=== PATIENT | female | born 1940 | race Hispanic/Latino ===

== ENCOUNTER → 2019-08-09 | Outpatient (CLI) | payer OTHER ==
[~2019-08-09] MED LIST: D3/R1CAP PO; HYDR12.530 PO; LOSA100T58 PO; METO50TA18 PO; OMEP20TA2 PO; fish PO
--- NOTE | 2019-08-09 23:54 | NUR ---
CURRENT MEDICATIONS LIST: AMLODIPINE 5MG, LOSARTAN 100MG, HYDROCHLOROTHIAZIDE 12.5, METOPROLOL 50MG, OMEPRAZOLDR 20/CELECOXIB 200MC, GABAPENTIN 300MG, LEVOTHYROXINE 25MCG, RENALITE TABLET Addendum: 08/09/19 at 2356 by ANGELES ENGLISH Amended: Links added.
== END | disposition home or self-care (01) ==
LOC: SLP 20:29
PROVIDERS: ATTEND Family Medicine
DX: G47.33 Obstructive sleep apnea (adult) (pediatric) (principal); I10 Essential (primary) hypertension; E66.9 Obesity, unspecified; Z68.42 Body mass index [BMI] 45.0-49.9, adult
CPT/HCPCS: 95810

== ENCOUNTER → 2019-08-10 | Outpatient (CLI) | payer OTHER | END | disposition home or self-care (01) | LOC: SLP 20:13 | PROVIDERS: ATTEND Family Medicine | DX: G47.33 Obstructive sleep apnea (adult) (pediatric) (principal); I10 Essential (primary) hypertension | CPT/HCPCS: 95811 ==

== ENCOUNTER → 2019-08-19 | Outpatient (CLI) | payer OTHER | END | disposition home or self-care (01) | LOC: RAH 09:48 | PROVIDERS: ATTEND Family Medicine | DX: I11.9 Hypertensive heart disease without heart failure (principal) | CPT/HCPCS: 93306 ==

== ENCOUNTER → 2020-04-11 | Outpatient (CLI) | payer OTHER | END | disposition home or self-care (01) | LOC: RAH 13:17 | PROVIDERS: ATTEND Urology | DX: N20.0 Calculus of kidney (principal); N23 Unspecified renal colic; Z90.710 Acquired absence of both cervix and uterus | CPT/HCPCS: 74176 ==

== ENCOUNTER → 2020-07-03 | Outpatient (CLI) | payer OTHER | END | disposition home or self-care (01) | LOC: RAH 12:43 | PROVIDERS: ATTEND Urology | DX: N28.1 Cyst of kidney, acquired (principal); I10 Essential (primary) hypertension | CPT/HCPCS: 76770 ==

== ENCOUNTER 2020-12-15 11:47 | Inpatient (IN) | payer OTHER ==
[~2020-12-15] VITALS: Ht 152.4 cm; Wt 108.9 kg
[2020-12-15] MEDS ORDERED: KETOROLAC 15MG/ML VIAL (15MG/ML) ONE (12:25)
[2020-12-15] MEDS ORDERED: ACETAMINOPHEN 500 MG TABLET ONE (12:26)
[2020-12-15 12:40] LABS: HEMATOCRIT 34.8 % (36-48); LYMPHOCYTES % (AUTO) 19.8 % (21.0-51.0); MEAN CORPUSCULAR HEMOGLOBIN 29.1 pg (27.0-33.0); MEAN CORPUSCULAR HGB CONC 33.3 g/dL (32.0-36.0); MEAN CORPUSCULAR VOLUME 87.4 fL (79-99); MONOCYTES % (AUTO) 16.5 % (3.0-13.0); NEUTROPHILS % (AUTO) 62.9 % (40.0-77.0); PLATELET COUNT (AUTO) 181 K/uL (130-400); RED BLOOD CELL COUNT(AUTO) 3.98 MIL/uL (4.00-5.50); RED CELL DISTRIBUTION WIDTH 13.5 % (11.0-15.5); WHITE BLOOD COUNT (AUTO) 4.9 K/uL (4.8-10.8)
[2020-12-15 12:48] LABS: ABG BASE EXCESS -4.6 mmol/L (-2.0-3.0); ABG HCO3 19.6 mmol/L (21.0-28.0); ABG OXYGEN SATURATION 91.9 % (95.0-99.0); ABG PCO2 34 mmHg (32-45)
[2020-12-15 12:50] LABS: CREATININE 1.7 mg/dL (0.5-1.5); POTASSIUM 4.8 mmol/L (3.5-5.1)
[2020-12-15 12:55] LABS: ALBUMIN 2.8 g/dL (3.5-5.0); BILIRUBIN,TOTAL 0.3 mg/dL (0.2-1.0); CRP QUANTITATIVE 75.2 mg/L (0.00-9.0); TOTAL PROTEIN, SERUM 7.4 g/dL (6.0-8.3)
[2020-12-15 13:07] LABS: B-TYPE NATRIURETIC PEPTIDE 100 pg/mL (0-100)
[2020-12-15] MEDS ORDERED: DEXAMETHASONE SOD PHOSPHATE 10MG/ML 1ML VIAL ONE (13:20)
[2020-12-15] MEDS ORDERED: CEFTRIAXONE 1G VIAL ONE (13:21)
[2020-12-15] MEDS ORDERED: AZITHROMYCIN 500MG+NS 250ML 250 ML IV ONE (13:21)
[2020-12-15 16:27] LABS: APPEARANCE,URINE SL CLOUDY (CLEAR); BILIRUBIN,URINE NEGATIVE (NEGATIVE); COLOR,URINE YELLOW (YELLOW); GLUCOSE, URINE (UA) NEGATIVE (NEGATIVE); KETONES,URINE 5 mg/dL (NEGATIVE); LEUKOCYTE ESTERASE ,URINE NEGATIVE (NEGATIVE); NITRATE,URINE NEGATIVE (NEGATIVE); OCCULT BLOOD,URINE MODERATE (NEGATIVE); PH,URINE 5.5 (5.0-8.0); PROTEIN,URINE >=300 mg/dL (NEGATIVE); UROBILINOGEN,URINE 0.2 mg/dL (0.2-1.0)
[2020-12-15] MEDS ORDERED: ACETAMINOPHEN 650 MG SUPPOSITORY RC PRN (16:30)
[2020-12-15] MEDS ORDERED: LABETALOL 20MG SYG IV PRN (16:30)
[2020-12-15] MEDS ORDERED: LACTULOSE 20 GM/30 ML UDCUP PO PRN (16:30)
[2020-12-15] MEDS ORDERED: INSULIN HUMULIN R 100 UNIT/ML 3ML SQ SCH (16:30)
[2020-12-15] MEDS ORDERED: ACETAMINOPHEN 325 MG TAB PO PRN (16:30)
[2020-12-15] MEDS ORDERED: CLONIDINE HCL 0.1 MG TABLET PO PRN (16:30)
[2020-12-15] MEDS ORDERED: ALBUTEROL INHALER 90MCG/INH IH PRN ×2 (16:30→16:45)
[2020-12-15] MEDS ORDERED: AZITHROMYCIN 500MG+NS 250ML 250 ML IV SCH (16:45)
[2020-12-15] MEDS ORDERED: DEXTROSE 5%-LACTATED RINGERS 1,000 ML IV SCH (16:45)
[2020-12-15] MEDS ORDERED: CEFTRIAXONE 1G VIAL IVP SCH (16:45)
[2020-12-15] MEDS ORDERED: SOLU-MEDROL 125MG VIAL IVP SCH (16:45)
[2020-12-15 16:51] LABS: BACTERIA,URINE Few /HPF (None Seen); FINE GRANULAR CASTS,URINE 0-2 /LPF (None Seen); MUCUS,URINE Moderate LPF (None Seen); SQUAMOUS EPITHELIAL CELL,UR Many /HPF (0-2)
[2020-12-15] MEDS ORDERED: GUAIFENESIN SUGAR-FREE 100 MG/5 ML UDCUP PO PRN (17:00)
[2020-12-15 18:40] LABS: TROPONIN I 7.75 ng/mL (0.00-0.06)
[2020-12-15] MEDS ORDERED: ASPIRIN 325MG EC TAB PO SCH (20:45)
[2020-12-15] MEDS ORDERED: METOPROLOL TARTRATE 25 MG TAB PO SCH (21:00)
[2020-12-15] MEDS ORDERED: ENOXAPARIN SODIUM 60 MG/0.6 ML SQ SCH (21:00)
[2020-12-15] MEDS ORDERED: ENOXAPARIN SODIUM 100 MG/1 ML SQ SCH (21:00)
[2020-12-15] MEDS ORDERED: METOPROLOL TARTRATE 50 MG TAB PO SCH (21:00)
[2020-12-15] MEDS ORDERED: ENOXAPARIN SODIUM 60 MG/0.6 ML SQ ONE (21:56)
[2020-12-15] MEDS ORDERED: METOPROLOL TARTRATE 50 MG TAB ONE ×2 (21:56→23:56)
[2020-12-15] MEDS ORDERED: INSULIN HUMULIN R 100 UNIT/ML 3ML ONE (21:57)
[2020-12-15 23:35] LABS: CREATINE KINASE, TOTAL 122 U/L (21-232); MYOGLOBIN 105 ng/mL (10-92); TROPONIN I < 0.04 ng/mL (0.00-0.06)
[2020-12-16 04:39] LABS: HEMATOCRIT 33.2 % (36-48); LYMPHOCYTES % (AUTO) 17.8 % (21.0-51.0); MEAN CORPUSCULAR HEMOGLOBIN 28.7 pg (27.0-33.0); MEAN CORPUSCULAR HGB CONC 32.8 g/dL (32.0-36.0); MEAN CORPUSCULAR VOLUME 87.4 fL (79-99); MONOCYTES % (AUTO) 13.1 % (3.0-13.0); NEUTROPHILS % (AUTO) 68.8 % (40.0-77.0); PLATELET COUNT (AUTO) 171 K/uL (130-400); RED CELL DISTRIBUTION WIDTH 13.5 % (11.0-15.5); WHITE BLOOD COUNT (AUTO) 3.4 K/uL (4.8-10.8)
[2020-12-16 04:59] LABS: ALANINE AMINOTRANSFERASE 55 U/L (12-78); ALBUMIN 2.4 g/dL (3.5-5.0); ASPARTATE AMINOTRANSFERASE 93 U/L (10-37); BILIRUBIN,TOTAL 0.2 mg/dL (0.2-1.0); CHLORIDE 106 mmol/L (101-111); CREATINE KINASE, TOTAL 114 U/L (21-232); CREATININE 1.7 mg/dL (0.5-1.5); GLOMERULAR FILTR. RATE CALC 31 mL/min (>60); GLUCOSE,RANDOM 195 mg/dL (70-105); LACTATE DEHYDROGENASE 404 U/L (81-234); MYOGLOBIN 111 ng/mL (10-92); PHOSPHORUS 2.4 mg/dL (2.5-4.9); POTASSIUM 5.2 mmol/L (3.5-5.1); SODIUM SERUM 138 mmol/L (136-145); TOTAL PROTEIN, SERUM 6.3 g/dL (6.0-8.3); TROPONIN I < 0.04 ng/mL (0.00-0.06); UREA NITROGEN, BLOOD 34 mg/dL (7-18)
[2020-12-16 05:02] LABS: B-TYPE NATRIURETIC PEPTIDE 161 pg/mL (0-100)
[2020-12-16 05:11] LABS: CARBON DIOXIDE 23 mmol/L (21-32)
[2020-12-16] MEDS ORDERED: ASPIRIN 81MG CHEW TAB ONE (08:04)
[2020-12-16] MEDS ORDERED: METOPROLOL TARTRATE 50 MG TAB ONE (08:05)
[2020-12-16] MEDS ORDERED: DEXAMETHASONE SOD PHOSPHATE 10MG/ML 1ML VIAL ONE (08:05)
[2020-12-16] MEDS ORDERED: INSULIN HUMULIN R 100 UNIT/ML 3ML ONE ×2 (08:05→11:52)
[2020-12-16] MEDS ORDERED: ASPIRIN 81MG CHEW TAB PO SCH (09:00)
[2020-12-16] MEDS ORDERED: DEXAMETHASONE SOD PHOSPHATE 4 MG/ML 1ML VIAL IVP SCH (09:00)
[2020-12-16 14:56] LABS: ABG BASE EXCESS -0.8 mmol/L (-2.0-3.0); ABG HCO3 24.3 mmol/L (21.0-28.0); ABG PCO2 42 mmHg (32-45)
[2020-12-16] MEDS ORDERED: AZITHROMYCIN 500MG+NS 250ML 250 ML IV ONE (16:12)
[2020-12-16] MEDS ORDERED: CEFTRIAXONE 1G VIAL ONE (16:12)
[2020-12-16] MEDS ORDERED: ENOXAPARIN SODIUM 100 MG/1 ML SQ ONE (20:41)
[2020-12-16] MEDS ORDERED: METOPROLOL TARTRATE 25 MG TAB ONE (20:42)
[2020-12-16] MEDS ORDERED: DEXTROSE 5%-WATER 1,000 ML IV ONE (20:43)
[2020-12-17 06:11] LABS: ALBUMIN 2.5 g/dL (3.5-5.0); BILIRUBIN,TOTAL 0.3 mg/dL (0.2-1.0); CREATININE 1.4 mg/dL (0.5-1.5); CRP QUANTITATIVE 35.9 mg/L (0.00-9.0); POTASSIUM 5.1 mmol/L (3.5-5.1); TOTAL PROTEIN, SERUM 7.3 g/dL (6.0-8.3)
[2020-12-17] MEDS ORDERED: ASPIRIN 81MG CHEW TAB ONE (08:46)
[2020-12-17] MEDS ORDERED: DEXAMETHASONE SOD PHOSPHATE 4 MG/ML 1ML VIAL ONE (08:46)
[2020-12-17] MEDS ORDERED: METOPROLOL TARTRATE 25 MG TAB ONE (08:46)
[2020-12-17] MEDS ORDERED: PHARMACY COMMUNICATION MISC SCH (10:00)
[2020-12-17] MEDS ORDERED: DIAZEPAM 5 MG TABLET ONE ×2 (15:36→21:26)
[2020-12-17] MEDS ORDERED: AZITHROMYCIN 500MG+NS 250ML 250 ML IV ONE (15:37)
[2020-12-17] MEDS ORDERED: CEFTRIAXONE 1G VIAL ONE (15:37)
[2020-12-17] MEDS ORDERED: DIAZEPAM 5 MG TABLET PO PRN (17:00)
[2020-12-17] MEDS ORDERED: ENOXAPARIN SODIUM 100 MG/1 ML SQ ONE (21:24)
[2020-12-17] MEDS ORDERED: METOPROLOL SUCCINATE 50 MG TAB.SR.24H PO ONE (21:36)
[2020-12-18] MEDS ORDERED: FUROSEMIDE 20MG VIAL IV SCH ×2 (01:45→09:00)
[2020-12-18 03:24] LABS: ABG BASE EXCESS 2.9 mmol/L (-2.0-3.0); ABG HCO3 26.9 mmol/L (21.0-28.0); ABG OXYGEN SATURATION 89.4 % (95.0-99.0); ABG PCO2 39 mmHg (32-45)
[2020-12-18] MEDS ORDERED: DIAZEPAM 5 MG TABLET ONE ×2 (06:28→14:26)
[2020-12-18 06:38] LABS: HEMATOCRIT 38.5 % (36-48); MEAN CORPUSCULAR HEMOGLOBIN 28.9 pg (27.0-33.0); MEAN CORPUSCULAR HGB CONC 33.5 g/dL (32.0-36.0); MEAN CORPUSCULAR VOLUME 86.1 fL (79-99); PLATELET COUNT (AUTO) 232 K/uL (130-400); RED BLOOD CELL COUNT(AUTO) 4.47 MIL/uL (4.00-5.50); RED CELL DISTRIBUTION WIDTH 13.2 % (11.0-15.5); WHITE BLOOD COUNT (AUTO) 9.3 K/uL (4.8-10.8)
[2020-12-18 06:58] LABS: ALBUMIN 2.4 g/dL (3.5-5.0); BILIRUBIN,TOTAL 0.4 mg/dL (0.2-1.0); CREATININE 1.2 mg/dL (0.5-1.5); CRP QUANTITATIVE 82.6 mg/L (0.00-9.0); POTASSIUM 4.6 mmol/L (3.5-5.1); TOTAL PROTEIN, SERUM 7.2 g/dL (6.0-8.3)
[2020-12-18 07:56] LABS: LYMPHOCYTES % (MANUAL) 6 % (22-44); MAN.DIFF COMMENT-IMPRESSION MANUAL DIFFERENTIAL; MONOCYTES % (MANUAL) 4 % (2-9); PLATELET MORPHOLOGY COMMENT ADEQUATE; SEGMENTED NEUTROPHILS % 90 % (40-70)
[2020-12-18] MEDS ORDERED: ASPIRIN 81MG CHEW TAB ONE (08:41)
[2020-12-18] MEDS ORDERED: FUROSEMIDE 20MG VIAL ONE (08:42)
[2020-12-18] MEDS ORDERED: DEXAMETHASONE SOD PHOSPHATE 10MG/ML 1ML VIAL ONE (08:42)
[2020-12-18] MEDS ORDERED: METOPROLOL TARTRATE 25 MG TAB ONE (08:42)
[2020-12-18] MEDS ORDERED: CEFTRIAXONE 1G VIAL ONE (17:02)
[2020-12-18] MEDS ORDERED: AZITHROMYCIN 500MG+NS 250ML 250 ML IV ONE (17:02)
[2020-12-18] MEDS ORDERED: ENOXAPARIN SODIUM 100 MG/1 ML SQ ONE (21:35)
[2020-12-18] MEDS ORDERED: METOPROLOL TARTRATE 1 MG/ML 5ML VIAL IV ONE (21:44)
[2020-12-18] MEDS ORDERED: METOPROLOL TARTRATE 1 MG/ML 5ML VIAL IV PRN (23:15)
[2020-12-19] MEDS ORDERED: FUROSEMIDE 20MG VIAL ONE (01:19)
[2020-12-19 03:55] LABS: ABG BASE EXCESS 3.7 mmol/L (-2.0-3.0); ABG HCO3 27.5 mmol/L (21.0-28.0); ABG OXYGEN SATURATION 89.8 % (95.0-99.0); ABG PCO2 39 mmHg (32-45)
[2020-12-19 04:48] LABS: HEMATOCRIT 37.5 % (36-48); MEAN CORPUSCULAR HEMOGLOBIN 29.3 pg (27.0-33.0); MEAN CORPUSCULAR HGB CONC 34.1 g/dL (32.0-36.0); MEAN CORPUSCULAR VOLUME 85.8 fL (79-99); RED BLOOD CELL COUNT(AUTO) 4.37 MIL/uL (4.00-5.50); RED CELL DISTRIBUTION WIDTH 13.1 % (11.0-15.5); WHITE BLOOD COUNT (AUTO) 12.6 K/uL (4.8-10.8)
[2020-12-19] MEDS ORDERED: METOPROLOL TARTRATE 1 MG/ML 5ML VIAL IV ONE (04:48)
[2020-12-19 05:01] LABS: CREATININE 1.3 mg/dL (0.5-1.5); POTASSIUM 4.2 mmol/L (3.5-5.1)
[2020-12-19] MEDS ORDERED: DEXAMETHASONE SOD PHOSPHATE 10MG/ML 1ML VIAL ONE (09:01)
[2020-12-19] MEDS ORDERED: FUROSEMIDE 40MG VIAL ONE (09:02)
[2020-12-19] MEDS ORDERED: METOPROLOL TARTRATE 25 MG TAB ONE (09:02)
[2020-12-19] MEDS ORDERED: ASPIRIN 81 MG EC TAB ONE (09:02)
[2020-12-19 10:03] LABS: BASOPHILS % (AUTO) 0.3 % (0.0-5.0); EOSINOPHILS % (AUTO) 0.1 % (0.0-8.0); HEMATOCRIT 41.2 % (36-48); LYMPHOCYTES % (AUTO) 58.5 % (21.0-51.0); MEAN CORPUSCULAR HEMOGLOBIN 28.7 pg (27.0-33.0); MEAN CORPUSCULAR HGB CONC 28.9 g/dL (32.0-36.0); MEAN CORPUSCULAR VOLUME 99.5 fL (79-99); MONOCYTES % (AUTO) 3.2 % (3.0-13.0); NEUTROPHILS % (AUTO) 34.2 % (40.0-77.0); NUCLEATED RED BLOOD CELLS 1.4 % (0.0-0.19); PLATELET COUNT (AUTO) 253 K/uL (130-400); RED BLOOD CELL COUNT(AUTO) 4.14 MIL/uL (4.00-5.50); RED CELL DISTRIBUTION WIDTH 13.3 % (11.0-15.5); WHITE BLOOD COUNT (AUTO) 15.5 K/uL (4.8-10.8)
[2020-12-19 10:12] LABS: CREATININE 2.2 mg/dL (0.5-1.5); POTASSIUM 5.5 mmol/L (3.5-5.1)
[2020-12-19 10:29] LABS: ALBUMIN 2.2 g/dL (3.5-5.0); BILIRUBIN,TOTAL 0.6 mg/dL (0.2-1.0); TOTAL PROTEIN, SERUM 7.4 g/dL (6.0-8.3)
== END 2020-12-19 10:20 | disposition expired | DRG 208 ==
LOC: EDH 11:47 → EDHIP 16:21 → 2AH 12-19 03:09 → 4BH 12-19 04:32 → EDHIP 12-19 08:30
PROVIDERS: ADMIT Internal Medicine Critical Care Medicine; ATTEND Internal Medicine Critical Care Medicine
PROC: 5A09357 Assistance with Respiratory Ventilation, Less than 24 Consecutive Hours, Continuous Positive Airway Pressure (ICD-10-PCS; 2020-12-18)
PROC: 5A1935Z Respiratory Ventilation, Less than 24 Consecutive Hours (ICD-10-PCS; principal; 2020-12-19)
PROC: 0BH17EZ Insertion of Endotracheal Airway into Trachea, Via Natural or Artificial Opening (ICD-10-PCS; 2020-12-19)
PROC: 5A12012 Performance of Cardiac Output, Single, Manual (ICD-10-PCS; 2020-12-19)
DX: U07.1 COVID-19 (principal); J12.82 Pneumonia due to coronavirus disease 2019; J96.01 Acute respiratory failure with hypoxia; N17.9 Acute kidney failure, unspecified; Z68.42 Body mass index [BMI] 45.0-49.9, adult; E66.01 Morbid (severe) obesity due to excess calories; K21.9 Gastro-esophageal reflux disease without esophagitis; D64.9 Anemia, unspecified; I12.9 Hypertensive chronic kidney disease with stage 1 through stage 4 chronic kidney disease, or unspecified chronic kidney disease; F41.9 Anxiety disorder, unspecified; G56.03 Carpal tunnel syndrome, bilateral upper limbs; N18.30 Chronic kidney disease, stage 3 unspecified; G47.33 Obstructive sleep apnea (adult) (pediatric); Z82.49 Family history of ischemic heart disease and other diseases of the circulatory system; Z90.49 Acquired absence of other specified parts of digestive tract; Z90.710 Acquired absence of both cervix and uterus; Z79.899 Other long term (current) drug therapy; Z88.5 Allergy status to narcotic agent; Z88.8 Allergy status to other drugs, medicaments and biological substances
CPT/HCPCS: 31500; 36415; 36600; 71045; 80048; 80053; 81001; 82435; 82550; 82728; 82803; 82947; 82948; 83036; 83605; 83615; 83735; 83874; 83880; 84100; 84132; 84145; 84295; 84484; 85018; 85025; 85027; 85378; 86140; 87040; 87426; 92950; 93005; 94002; 94660; G0378; J0456; J0696; J1100; J1650; J1815; J1885; J1940; J3490; J7070